=== PATIENT | male | born 1970 | race Caucasian/White ===

== ENCOUNTER 2021-04-16 15:25 | Outpatient (REF) | payer OTHER, SELFPAY ==
--- NOTE | ~2021-04-16 | XR_ITS ---
EXAMINATION: XR SINUSES CLINICAL INFORMATION: Sinusitis COMPARISON: None TECHNIQUE: 4 views of the sinuses were obtained. FINDINGS: The paranasal sinuses are well aerated. No evidence of mucoperiosteal thickening or air-fluid levels. The facial bones have an intact appearance. Of the orbital rims are normal. The visualized calvarium is normal. The mastoid air cells are unremarkable. XR/XR sinus min 3V IMPRESSION: No evidence of sinusitis.
== END 2021-04-16 15:26 | disposition home or self-care (01) ==
LOC: HO.XRAY 15:25
PROVIDERS: PCP Internal Medicine; Visit Provider Otolaryngology
DX: J32.9 Chronic sinusitis, unspecified (principal)
CPT/HCPCS: 70220